=== PATIENT | male | born 2000 | race Asian ===

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

== ENCOUNTER → 2025-11-01 00:20 | Outpatient (CLI) | payer MEDICAID, SELFPAY ==
--- NOTE | 2025-11-01 | DI.CT_ITS ---
Exam(s) CT UPPER EXTREMITY RT WO EXAM: CT UPPER EXTREMITY RT WO CLINICAL HISTORY: PAIN RT SHOULDER,M25.511 TECHNIQUE: Imaging Protocol: Axial computed tomography images with coronal and sagittal reformatted images were created and reviewed. CONTRAST MATERIAL: Intravenous: Omnipaque 350 Contrast volume:structured data in ml Contrast route:IV - Oral: yes / no COMPARISON: CR XR shoulder LT complete 2+V from 03/10/2019 There are no x-rays of the right shoulder valuable the time of this interpretation. FINDINGS: OSSEOUS: No evidence of fracture or dislocation of the glenohumeral joint. No abnormal soft tissue calcifications within the subacromial space. No obvious degenerative changes in the glenohumeral joint. The AC joint appears unremarkable. No osseous lesions. Coracoid process appears intact. Scapula unremarkable. Adjacent ribs unremarkable. SOFT TISSUES: No significant focal soft tissue findings. IMPRESSION: No significant findings. If clinically indicated none further study with MRI can be performed RADIATION DOSE DELIVERED: 167.9mGy.cm Total DLP DATA REPOSITORY: All CT scans at this facility are submitted to the National Radiology Data Registry (NRDR) Dose Index Registry (DIR) with the [employer] ([employer]). RADIATION OPTIMIZATION: All CT scans at this facility use at least one of these dose optimization techniques: automated exposure control; mA and/or kV adjustment per patient size (includes targeted exams where dose is matched to clinical indication); or iterative reconstruction.
== END ==
LOC: DI 00:20
PROVIDERS: Visit Provider Nurse Practitioner Family
DX: M25.511 Pain in right shoulder (principal)
CPT/HCPCS: 73200